=== PATIENT | female | born 1950 | race Caucasian/White ===

== ENCOUNTER 2019-01-25 08:45 | Inpatient (IN) | payer MEDICARE ==
[~2019-01-25] VITALS: Ht 152.4 cm; Wt 63.1 kg
[~2019-01-25 08:45] MED LIST: ALBU8.5H8 INH; BUDE10.2 INH; OMEP40CA37 PO
[2019-02-06 16:21] LABS: BASOPHILS # (AUTO) 0.1 X10'3 (0-0.2); EOSINOPHILS # (AUTO) 0.3 X10'3 (0-0.9); LYMPHOCYTES # (AUTO) 1.9 X10'3 (1.1-4.8); LYMPHOCYTES % (AUTO) 30.1 % (21-51); MEAN CORPUSCULAR HEMOGLOBIN 31.6 PG (27.0-31.0); MEAN CORPUSCULAR HGB CONC 34.7 g/dL (33.0-36.5); MEAN CORPUSCULAR VOLUME 90.9 FL (78-98); MEAN PLATELET VOLUME 8.4 FL (7.4-10.4); MONOCYTES # (AUTO) 0.5 X10'3 (0-0.9); MONOCYTES % (AUTO) 7.9 % (2-12); NEUTROPHILS # (AUTO) 3.6 X10'3 (1.8-7.7); PRE OP HEMATOCRIT 44.5 % (35.0-45.0); PRE OP HEMOGLOBIN 15.5 g/dL (12.0-16.0); PRE OP PLATELET COUNT 209 X10'3 (140-440); RED CELL DISTRIBUTION WIDTH 14.5 % (11.5-14.5)
[2019-02-06] MEDS ORDERED: LOSA50TA3 PO (16:37)
[2019-02-06] MEDS ORDERED: OXYGEN (16:37)
[2019-02-06] MEDS ORDERED: CARV-50 PO (16:37)
[2019-02-06] MEDS ORDERED: ATOR20TA PO (16:37)
[2019-02-06] MEDS ORDERED: HYDR-3972 PO (16:37)
[2019-02-06] MEDS ORDERED: CHLO25TA2 PO (16:37)
[2019-02-06 16:39] LABS: ALBUMIN 3.9 G/DL (3.4-5.0); ALBUMIN/GLOBULIN RATIO 1.3 (1.1-1.5); ALKALINE PHOSPHATASE 78 IU/L (46-116); BLOOD UREA NITROGEN 35 MG/DL (7-18); BUN/CREATININE RATIO 42.2 (6.6-38.0); CALCIUM 9.3 MG/DL (8.5-10.1); CHLORIDE 102 MMOL/L (99-107); CREATININE 0.83 MG/DL (0.40-0.90); PRE OP ALT 19 U/L (30-65); PRE OP ANION GAP 7 (8-16); PRE OP AST 11 U/L (10-37); PRE OP BILIRUB, TOTAL 0.4 MG/DL (0.0-1.0); PRE OP GLUCOSE 100 MG/DL (70-104); PRE OP SODIUM 140 MMOL/L (135-145); TOTAL CARBON DIOXIDE 30.8 MMOL/L (24-32); TOTAL PROTEIN 6.8 G/DL (6.4-8.2); eGFR 68 ML/MIN
[2019-02-19] VITALS (21 sets, daily range): BP systolic 79–125; BP diastolic 51–90
[2019-02-19 08:36] LABS: ISTAT CREATININE 0.7 mg/dL (0.6-1.1); ISTAT HGB 13.6 g/dl (12.0-16.0); ISTAT IONIZED CALCIUM 1.22 mmol/L (1.03-1.32); ISTAT K 3.3 mmol/L (3.5-5.1); POC BUN/CREATININE RATIO 37.1 (6.6-38.0)
--- NOTE | 2019-02-19 08:37 | NUR ---
I-STAT DRAWN K 3.3. DR. TERRELL MADE AWARE
[2019-02-19] MEDS ORDERED: tranexamic acid inj. 600 MG in normal saline 100ml IV soln 100 ML IV ONE ×3 (08:45→17:00)
[2019-02-19] MEDS ORDERED: albuterol 2.5 MG/3 ML nebule NEB ONE (08:45)
[2019-02-19] MEDS ORDERED: ringers solution, lacted 1,000 ML IV SCH ×2 (08:45→12:08)
[2019-02-19] MEDS ORDERED: famotidine 20mg tablet PO ONE (08:45)
[2019-02-19] MEDS ORDERED: VANCOMYCIN INJ 1000 MG in NORMAL SALINE 250ml IV.SOLN IV ONE (08:45)
[2019-02-19] MEDS ORDERED: cefazolin/dext.iso 2gm/100 ML IV ONE (08:45)
[2019-02-19] MEDS ORDERED: ROPIVAcaine 0.5% (5mg/ml) 30ml vial ONE ×2 (10:14→10:30)
[2019-02-19] MEDS ORDERED: fentaNYL/PF 50MCG/1 ML 2ML syringe ONE (10:17)
[2019-02-19] MEDS ORDERED: etomidate 2mg/ml inj. ONE (10:20)
[2019-02-19] MEDS ORDERED: succinylcholine 20mg/ml inj IV ONE (10:20)
[2019-02-19] MEDS ORDERED: ketorolac trometh. 30mg/ml inj. ONE (10:30)
[2019-02-19] MEDS ORDERED: sevoflurane 250ml liquid IH ONE (11:11)
[2019-02-19] MEDS ORDERED: ROPIVAcaine 0.2%/PF PAIN PUMP 400 ML IJ SCH (12:08)
[2019-02-19] MEDS ORDERED: labetalol 20mg/4ml (5mg/ml) syringe IV PRN (12:10)
[2019-02-19] MEDS ORDERED: morphine 4 MG/ML inj SYRINge IV PRN ×2 (12:10)
[2019-02-19] MEDS ORDERED: hydrALAZINE 20mg/ml inj. IV PRN (12:10)
[2019-02-19] MEDS ORDERED: ondansetron/PF 4mg/2ml inj IV PRN ×2 (12:10→13:55)
[2019-02-19] MEDS ORDERED: fentaNYL/PF 50MCG/1 ML 2ML syringe IV PRN ×2 (12:10)
--- NOTE | 2019-02-19 13:50 | NUR ---
Received from OR via , accompanied by Anesthesiologist DR TERRELL and report given by Anesthesiolgist. PT SLEEPING BUT WAKES TO VOICE, SKIN WARM AND PINK, C/O FEELING COLD, PLACED BLANKET WARMER ON PT AND WARMED BLANKETS ON TOP, SCD'S, PIV LEFT HAND 18G WITH LR 100ML/HR, RIGHT UE ISLAND DRESSING CD, POWDER COLD PAC IN PLACE, ON-Q PAIN BALL SET UP AND ATTCHED TO PT, NO C/O PAIN.
[2019-02-19] MEDS ORDERED: potassium cl 20mEq in 1/2 NS 1,000 ML IV SCH (13:51)
[2019-02-19] MEDS ORDERED: bisacodyl 10mg suppository rectal RC PRN (13:55)
[2019-02-19] MEDS ORDERED: acetaminophen 325mg tablet PO PRN (13:55)
[2019-02-19] MEDS ORDERED: oxyCODONE IR 5mg (immed. release) tablet PO PRN (13:55)
[2019-02-19] MEDS ORDERED: HYDROmorphone inj. 0.5 MG/0.5 ML DISP.SYRIN IV PRN (13:55)
[2019-02-19] MEDS ORDERED: diphenhydrAMINE 25mg capsule PO PRN ×2 (13:55)
[2019-02-19] MEDS ORDERED: HYDROmorphone 1 mg/ml syringe IV PRN (13:55)
[2019-02-19] MEDS ORDERED: magnesium hydroxide 30ml (MOM) UD suspension PO PRN (13:55)
[2019-02-19] MEDS ORDERED: albuterol 2.5 MG/3 ML nebule NEB PRN (14:10)
--- NOTE | 2019-02-19 15:10 | NUR ---
Report called to receiving nurse. Transferred via [facility] . Special Issues communicated to receiving nurse BENEDICTO HUDSON. PT IS AWAKE, ALERT, MOVES EXT X 4, DIMINISHED SENSATION IN RIGHT UE BUT ABLE TO WIGGLE FINGERS, ISLAND DRESSING CD, POWDER COLD PAC IN PLACE, ON-Q PAIN BALL INFUSING, SCD'S, NO C/O PAIN, WILLIAN ICE WATER.
[2019-02-19] MEDS: acetaminophen 325mg tablet PO SCH ×2 (17:45→20:53)
[2019-02-19] MEDS: ketorolac tromethamine 15mg/ml inj. IV SCH ×2 (17:46→20:00)
[2019-02-19] MEDS: ceFAZolin 1GM/D5W- ADD-VANTAGE 50 ML IV SCH (18:54)
[2019-02-19] MEDS ORDERED: vancomycin/NS 1 GM ADD-VANTAGE 250 ML IV SCH (20:00)
[2019-02-19] MEDS: budesonide 0.5mg/2ml UD nebule IH SCH (20:15)
[2019-02-19] MEDS: carVEDilol 12.5mg tablet PO SCH (20:53)
[2019-02-19] MEDS ORDERED: losartan 50mg tablet PO SCH (21:00)
[2019-02-19] MEDS ORDERED: atorvastatin 20mg tablet PO SCH (21:00)
[2019-02-19] MEDS ORDERED: sennosides 8.6mg tablet PO SCH (21:00)
[2019-02-20] MEDS: ceFAZolin 1GM/D5W- ADD-VANTAGE 50 ML IV SCH (00:14)
[2019-02-20 02:00] VITALS: BP 93/55
[2019-02-20] MEDS: acetaminophen 325mg tablet PO SCH ×2 (02:14→08:49)
[2019-02-20] MEDS: albuterol 2.5 MG/3 ML nebule NEB SCH ×2 (03:12→08:54)
[2019-02-20] MEDS: oxyCODONE IR 5mg (immed. release) tablet PO PRN ×2 (04:41→10:14)
--- NOTE | 2019-02-20 05:59 | NUR ---
I have reviewed and agree with all medications administered and interventions performed by Student Elba Peralta.
[2019-02-20 06:00] VITALS: BP 83/46
[2019-02-20 06:01] LABS: BASOPHILS % (AUTO) 0.1 % (0-1); EOSINOPHILS % (AUTO) 0 % (0-6); HEMATOCRIT 30.5 % (35.0-45.0); HEMOGLOBIN 10.7 g/dl (12.0-16.0); LYMPHOCYTES # (AUTO) 0.7 X10'3 (1.1-4.8); LYMPHOCYTES % (AUTO) 6.7 % (21-51); MEAN CORPUSCULAR HEMOGLOBIN 32.4 PG (27.0-31.0); MEAN CORPUSCULAR HGB CONC 35.2 g/dL (33.0-36.5); MEAN PLATELET VOLUME 8.6 FL (7.4-10.4); MONOCYTES # (AUTO) 0.8 X10'3 (0-0.9); MONOCYTES % (AUTO) 7.5 % (2-12); NEUTROPHILS # (AUTO) 9.4 X10'3 (1.8-7.7); NEUTROPHILS % (AUTO) 85.7 % (42-75); PLATELET COUNT 168 X10'3 (140-440); RED BLOOD COUNT 3.31 X10'6 (4.20-5.60); RED CELL DISTRIBUTION WIDTH 13.9 % (11.5-14.5)
[2019-02-20 06:14] LABS: ANION GAP 10 (8-16); CHLORIDE 105 MMOL/L (99-107); POTASSIUM 3.7 MMOL/L (3.5-5.1); SODIUM 141 MMOL/L (135-145); TOTAL CARBON DIOXIDE 25.8 MMOL/L (24-32)
--- NOTE | 2019-02-20 06:27 | NUR ---
Report given to Elba HUDSON.
[2019-02-20] MEDS ORDERED: pantoprazole 40mg Tablet.DR PO SCH (07:30)
[2019-02-20] MEDS ORDERED: chlorthalidone 25mg tablet PO SCH (08:00)
[2019-02-20] MEDS ORDERED: ASPI-1 PO (08:18)
[2019-02-20] MEDS ORDERED: aspirin 325mg tablet PO SCH (08:30)
[2019-02-20] MEDS: carVEDilol 12.5mg tablet PO SCH (08:49)
[2019-02-20] MEDS: budesonide 0.5mg/2ml UD nebule IH SCH (08:53)
[2019-02-20 10:00] VITALS: BP 86/51
[2019-02-20] MEDS ORDERED: celeCOXIB 100mg capsule PO SCH (20:00)
[2019-02-21] MEDS ORDERED: acetaminophen 325mg tablet PO PRN (13:55)
== END 2019-02-20 11:45 | disposition home or self-care (01) | DRG 483 ==
LOC: PAS IN 02-19 07:37 → EDSTATUS 02-19 12:15 → ORTHO 4S 02-19 15:39 → UNDODISIN 02-20 11:45
PROVIDERS: ADMIT Orthopaedic Surgery; ATTEND Orthopaedic Surgery
PROC: 0LS30ZZ Reposition Right Upper Arm Tendon, Open Approach (ICD-10-PCS; 2019-02-19)
PROC: 3E0T3BZ Introduction of Anesthetic Agent into Peripheral Nerves and Plexi, Percutaneous Approach (ICD-10-PCS; 2019-02-19)
PROC: 0RRJ0JZ Replacement of Right Shoulder Joint with Synthetic Substitute, Open Approach (ICD-10-PCS; principal; 2019-02-19 11:11)
DX: M19.011 Primary osteoarthritis, right shoulder (principal); D62 Acute posthemorrhagic anemia; K21.9 Gastro-esophageal reflux disease without esophagitis; J45.909 Unspecified asthma, uncomplicated; I25.10 Atherosclerotic heart disease of native coronary artery without angina pectoris; I10 Essential (primary) hypertension; G89.29 Other chronic pain; E78.5 Hyperlipidemia, unspecified; M65.9 Synovitis and tenosynovitis, unspecified; M75.21 Bicipital tendinitis, right shoulder; Z88.0 Allergy status to penicillin; Z86.73 Personal history of transient ischemic attack (TIA), and cerebral infarction without residual deficits; Z88.8 Allergy status to other drugs, medicaments and biological substances
CPT/HCPCS: 36415; 80047; 80051; 80053; 85025; 87070; 93005; 94640; 94760; 97110; 97116; 97161; A4565; A7000; C1713; C1776; G0378; J0330; J0690; J1885; J2795; J3010; J3370; J3490; J7030; J7040; J7120; J7626